=== PATIENT | male | born 1970 | race Hispanic/Latino ===

== ENCOUNTER 2016-07-24 22:47 | Emergency (ER) | payer OTHER ==
[~2016-07-24] VITALS: Ht 167.6 cm; Wt 81.8 kg
[2016-07-24 23:03] VITALS: BP 165/92; PULSE 97; RESP 16; O2SAT 97
--- NOTE | 2016-07-24 23:09 | ED.REPORT ---
HPI-Extremity Problem Upper Date of Service Jul 24, 2016 ED Provider: Eliseo Quinteros DO Pt is a 45 y.o. [place]-speaking male who presents to the ED c/o left 4th finger injury onset 1700. 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 Pt went home and his brought him in. states that the injury occurred with a knife. Pt is not UTD with his tetanus vaccination. Pt has no other injuries at this time. Nursing Notes Stated Complaint: FINGER LACERATION Chief Complaint: Laceration Nursing Notes Reviewed: Yes Allergies: Coded Allergies: No Known Allergies (Unverified , 07/24/16) General Time Seen by MD: 23:08 Chief Complaint Finger injury left 4 Hx Obtained From: Patient, Spouse Arrived By: Walk-in Onset Occurred: 1 - 4 hours ago Symptom Duration: Since onset Caused by: Accidental, Knife wound Context: Occurred at: Workplace Location: : Finger left 4 Quality: Painful Severity: Current: Moderate Immunizations: Tetanus not up to date Past Medical History Past Medical History None reported Past Surgical History None reported Social History Other Social History: Ambulatory Status Independent Review of Systems Laceration, left 4th finger Constitutional: Denies: Chills, Fever Musculoskeletal: Reports: Extremity pain (Left 4th finger) Complete sys rev & neg: except as marked. GI: Denies: Diarrhea, Nausea, Vomiting Physical Exam Initial Vital Signs Vital Signs (First) Date Time Temp Pulse Resp B/P Pulse Ox O2 Delivery O2 Flow Rate FiO2 07/24/16 23:03 37.2 97 16 165/92 97 Room Air Initial VS: Reviewed Abdomen / GI: No distention Lower Extremities: Vascular intact, Neuro intact Skin: Warm, Dry, No cyanosis Neurologic: Alert, Oriented, Nonfocal Psychiatric: Mood/affect normal, Behavior normal, Normal thought content General/Constitutional: Awake, Alert, No acute distress, Well appearing, Well developed, Well hydrated, Well nourished, Not toxic appearing Respiratory / Chest: Atraumatic, Breath sounds NL, Breath sounds = bilat, No respiratory distress Cardiovascular: Heart rate NL, Regular rhythm, Heart sounds NL, Peripheral circulation NL Wrist / Hand: Neurologic intact, Vascular intact Finger Exam : Finger Exam: Positive: Finger name... (L ring), Tenderness present..., Negative: Neuro deficit present, ROM reduced Trauma / Burn / Environmental: Positive: Laceration (3cm flap type laceration to left 4th finger) Procedures Laceration Management Time: 23:45 Procedure Performed by: ED physician Consent / Setup / Site Prep: Informed consent provided, Consent from patient , Time-out performed, Hand hygiene observed, Stand sterile technique Location of Wound: 3cm laceration to dorsal side of left ring finger. Flap type laceration When flap is lifted there is exposed extensor tendon, without obvious injury Splint applied. Wound Length: 3 cm Local Anesthesia: Lidocaine 1% Digit Involved: Ring finger left Wound Preparation: Betadine Foreign Body Explore / Removal: Explored for foreign body Repair Skin: ___ O (5), Nylon # Sutures - Skin: 9 Suture Technique: Simple Post-Procedure / Complications: Dressing applied, No complications, Condition improved, Tolerated procedure well, Patient stable Re-Eval/Medical Decision Med Decision/Clinical Course 3 cm finger laceration. Flap type. Under the laceration was exposed extensor tendon. No signs of bony injury. No signs of traumatic arthrotomy. There was a superficial [place] the laceration but for the most part the tendon is intact and he should do well. The wound was anesthetized and copiously carefully irrigated out. Wound prep with Betadine and closed in a meticulous sterile technique. Of note I got a very good look at the entire tendon throughout its range of motion. He was splinted in extension. Antibiotic prophylaxis. I left a message with the [facility] answering service. We will have outpatient or through follow-up. Once he was anesthetized it full range of motion of the tendon. I assessed each joint individually against resistance and there is no evidence of tendon function loss. Source of Hx: Old records Re-Evaluation/Progress : Time of Eval: 23:45 Re-Evaluation/Progress Note: Pt rechecked. Laceration management performed. Counseled Regarding: Diagnosis Discharge & Departure Impression: Primary Impression: Laceration Additional Impression: Tendon injury Disposition: Home Discharge Condition All VS Reviewed: Yes Condition: Improved Patient Instructions: Laceration (ED) Additional Instructions: You were seen here today for a finger laceration. Keep the affected area clean, dry, and splinted. Take Keflex 4 times daily for the next 7 days. Follow-up with the orthopedic surgeon. I called and left a message with the orthopedic office and they are expecting you to call tomorrow morning. You exposed part of your extensor tendon, it is important that you follow-up to avoid infection. I will prescribe you Narco, take 1 every 6 hours as needed fo rsevere pain. Do not drink, drive, or consume acetaminophen while taking Heaters. Return if you experience any signs of infection: increased pain, redness, or discharge, or any new or worsening symptoms. Referrals: Flako Parks DO [facility] Zeferino Attestation Portions of this note were transcribed by Melly Pickett. I, Dr. Quinteros personally performed the history, physical exam and medical decision-making; I reviewed and confirmed the accuracy of the information in the transcribed note. Signed by : Zeferino Skelton, 07/25/16 and 0038 copies to: Flako Parks DO; [facility] Eliseo Quinteros DO Jul 24, 2016 23:09 MELLY PICKETT Jul 24, 2016 23:23
[2016-07-24] MEDS ORDERED: Lidocaine 1% 50 mL Inj NERVEBLOCK ONE (23:20)
[2016-07-24] MEDS ORDERED: TdaP Vaccine 0.5 mL Inj IM ONE (23:20)
[2016-07-24] MEDS ORDERED: CeFAZolin 1,000 mg Inj IM ONE (23:55)
[2016-07-25] MEDS ORDERED: _HYDROcodone/APAP 5-325 mg Tablet PO PRN (00:35)
== END 2016-07-25 01:15 | disposition home or self-care (01) ==
LOC: SED 23:00
DX: S61.215A Laceration without foreign body of left ring finger without damage to nail, initial encounter (principal); S66.305A Unspecified injury of extensor muscle, fascia and tendon of left ring finger at wrist and hand level, initial encounter; W26.0XXA Contact with knife, initial encounter; Y92.59 Other trade areas as the place of occurrence of the external cause; Y93.89 Activity, other specified; Y99.0 Civilian activity done for income or pay; Z23 Encounter for immunization
CPT/HCPCS: 12042; 90471; 90715; 96372; 99283; J0690